=== PATIENT | male | born 1990 | race Two or more races ===

== ENCOUNTER 2022-04-03 01:45 | Emergency (ER) | payer MEDICAID ==
[~2022-04-03] VITALS: Ht 167.6 cm; Wt 171.4 kg
[2022-04-03 02:13] LABS: Basophils # (auto) 0.1 10 ^3/uL (0-0.2); Monocytes # (auto) 0.6 10 ^3/uL (0-1.3); Red Blood Cells 6.27 10^6/uL (4.5-5.90); White Blood Cell 10.1 10^3/uL (4.4-10.8)
[2022-04-03 02:15] LABS: Basophils % (auto) 0.8 % (0.0-2.0); Eosinophils # (auto) 0.3 10 ^3/uL (0-0.8); Eosinophils % (auto) 2.7 % (0.0-7.0); Hematocrit 49.9 % (41.0-53.0); Hemoglobin 16.4 g/dL (13.5-17.5); Lymphocytes # (auto) 3.9 10 ^3/uL (0.4-5.4); Lymphocytes % (auto) 38.3 % (10.0-50.0); Mean Corpuscular Hemoglobin 26.1 pg (28.0-32.0); Mean Corpuscular Hgb Conc. 32.8 g/dL (32.0-36.0); Mean Corpuscular Volume 79.5 fL (80.0-100.0); Monocytes % (auto) 5.9 % (0.0-12.0); Neutrophils # (auto) 5.3 10 ^3/uL (1.6-8.6); Neutrophils % (auto) 52.3 % (37.0-80.0); Nucleated Red Blood Cells % 0.2 %; Red Cell Distribution Width 14.1 % (11.8-14.3)
[2022-04-03 02:32] LABS: Albumin 3.9 g/dL (3.4-5.0); BUN/Creatinine Ratio 10.9; Calcium 8.8 mg/dL (8.5-10.1); Magnesium 2.2 mg/dL (1.6-2.6); Potassium 4.2 mmol/L (3.5-5.1)
[2022-04-03] MEDS ORDERED: HYDR50CA PO (02:34)
[2022-04-03 02:35] LABS: Bilirubin, Total 0.4 mg/dL (0.2-1.0); Total Protein 7.5 g/dL (6.4-8.2)
[2022-04-03] MEDS ORDERED: LORazepam 0.5 MG TAB PO ONE (02:45)
[2022-04-03 04:38] VITALS: BP 112/52
== END 2022-04-03 04:45 | disposition home or self-care (01) ==
LOC: ER 01:45
DX: F41.0 Panic disorder [episodic paroxysmal anxiety] (principal)
CPT/HCPCS: 36415; 71045; 80053; 83735; 83880; 84484; 85025; 93005

== ENCOUNTER 2022-05-22 22:05 | Emergency (ER) | payer MEDICAID ==
[~2022-05-22] VITALS: Ht 167.6 cm; Wt 168.7 kg
[~2022-05-22 22:05] MED LIST: HYDR50CA PO
[2022-05-23 00:07] VITALS: BP 125/72
== END 2022-05-23 01:16 | disposition home or self-care (01) ==
LOC: ER 22:05
DX: F41.9 Anxiety disorder, unspecified (principal)
CPT/HCPCS: 93005

== ENCOUNTER 2022-07-13 09:28 | Emergency (ER) | payer MEDICAID ==
[~2022-07-13] VITALS: Ht 167.6 cm; Wt 164.6 kg
[2022-07-13 09:35] VITALS: BP 143/92
[2022-07-13] MEDS ORDERED: ASPirin 325 MG TAB PO ONE (09:45)
[2022-07-13 10:08] LABS: Eosinophils # (auto) 0.2 10 ^3/uL (0-0.8); Lymphocytes # (auto) 2.7 10 ^3/uL (0.4-5.4); Neutrophils # (auto) 3.6 10 ^3/uL (1.6-8.6)
[2022-07-13 10:10] LABS: Basophils # (auto) 0 10 ^3/uL (0-0.2); Basophils % (auto) 0.6 % (0.0-2.0); Eosinophils % (auto) 3.5 % (0.0-7.0); Hemoglobin 16.7 g/dL (13.5-17.5); Lymphocytes % (auto) 37.4 % (10.0-50.0); Mean Corpuscular Hemoglobin 26.3 pg (28.0-32.0); Mean Corpuscular Hgb Conc. 34.1 g/dL (32.0-36.0); Mean Corpuscular Volume 77.3 fL (80.0-100.0); Monocytes # (auto) 0.5 10 ^3/uL (0-1.3); Monocytes % (auto) 7.6 % (0.0-12.0); Neutrophils % (auto) 50.9 % (37.0-80.0); Nucleated Red Blood Cells % 2.1 %; Red Blood Cells 6.34 10^6/uL (4.5-5.90); White Blood Cell 7.2 10^3/uL (4.4-10.8)
[2022-07-13 10:20] LABS: Albumin 3.8 g/dL (3.4-5.0); Calcium 8.8 mg/dL (8.5-10.1); Magnesium 2.3 mg/dL (1.6-2.6); Potassium 4.2 mmol/L (3.5-5.1)
[2022-07-13 10:23] LABS: Bilirubin, Total 0.5 mg/dL (0.2-1.0); Total Protein 7.1 g/dL (6.4-8.2)
[2022-07-13 10:30] LABS: INR 0.99 (0.9-1.15); Partial Thromboplastin Time 21.8 sec (24.6-33.4)
[2022-07-13 12:47] LABS: Alcohol, Urine < 3.0 mg/dL (0-10); Amphetamine Screen, Urine NEGATIVE (NEGATIVE); Barbiturate Scree,Urine NEGATIVE (NEGATIVE); Benzodiazephine Screen, Urine NEGATIVE (NEGATIVE); Cannabinoid Screen, Urine NEGATIVE (NEGATIVE); Cocaine Screen, Urine NEGATIVE (NEGATIVE); Opiate Scree,Urine NEGATIVE (NEGATIVE); Phencyclidine Screen, Urine NEGATIVE (NEGATIVE)
[2022-07-13 12:48] LABS: Urine Bacteria NONE SEEN /hpf (None Seen); Urine Blood Negative /uL (Negative); Urine Mucus FEW (None Seen); Urine Specific Gravity 1.023 (1.001-1.035); Urine WBC 1 /hpf (0 - 3)
[2022-07-13] MEDS ORDERED: ACET-6 PO (13:31)
== END 2022-07-13 14:42 | disposition left against medical advice (07) ==
LOC: ER 09:28
DX: M94.0 Chondrocostal junction syndrome [Tietze] (principal); Z79.899 Other long term (current) drug therapy
CPT/HCPCS: 36415; 71045; 80053; 80307; 81001; 83690; 83735; 83880; 84484; 85025; 85379; 85610; 85730; 93005

== ENCOUNTER → 2022-07-30 | Emergency (ER) | payer MEDICAID ==
[~2022-07-30] MED LIST changes: +ACET-6 PO
== END | disposition left against medical advice (07) ==
LOC: ER 20:15
DX: R42 Dizziness and giddiness (principal); Z53.21 Procedure and treatment not carried out due to patient leaving prior to being seen by health care provider

== ENCOUNTER 2022-08-21 13:07 | Emergency (ER) | payer MEDICAID ==
[~2022-08-21] VITALS: Ht 167.6 cm; Wt 158.0 kg
[2022-08-21 13:28] LABS: Basophils # (auto) 0.1 10 ^3/uL (0-0.2); Eosinophils # (auto) 0.2 10 ^3/uL (0-0.8); Monocytes # (auto) 0.5 10 ^3/uL (0-1.3); White Blood Cell 7.4 10^3/uL (4.4-10.8)
[2022-08-21 13:29] LABS: Basophils % (auto) 0.7 % (0.0-2.0); Eosinophils % (auto) 2.9 % (0.0-7.0); Hematocrit 50.7 % (41.0-53.0); Hemoglobin 16.5 g/dL (13.5-17.5); Lymphocytes # (auto) 2.5 10 ^3/uL (0.4-5.4); Lymphocytes % (auto) 33.6 % (10.0-50.0); Mean Corpuscular Hemoglobin 26.2 pg (28.0-32.0); Mean Corpuscular Hgb Conc. 32.6 g/dL (32.0-36.0); Mean Corpuscular Volume 80.2 fL (80.0-100.0); Monocytes % (auto) 7.2 % (0.0-12.0); Neutrophils # (auto) 4.1 10 ^3/uL (1.6-8.6); Neutrophils % (auto) 55.6 % (37.0-80.0); Nucleated Red Blood Cells % 0.9 %; Red Blood Cells 6.32 10^6/uL (4.5-5.90)
[2022-08-21] MEDS ORDERED: ASPirin 81 mg TAB PO ONE (13:30)
[2022-08-21 14:00] LABS: INR 0.95 (0.9-1.15); Partial Thromboplastin Time 24.2 sec (24.6-33.4)
[2022-08-21 14:09] LABS: Albumin 4.2 g/dL (3.4-5.0); Magnesium 2.4 mg/dL (1.6-2.6); Potassium 4.2 mmol/L (3.5-5.1)
[2022-08-21 14:14] LABS: BUN/Creatinine Ratio 7.4 (10.0-20.0); Bilirubin, Total 0.3 mg/dL (0.2-1.0); Calcium 9.3 mg/dL (8.5-10.1); Total Protein 7.1 g/dL (6.4-8.2)
[2022-08-21] MEDS ORDERED: ACET-6 PO (15:56)
[2022-08-21 16:16] VITALS: BP 138/83
== END 2022-08-21 16:17 | disposition home or self-care (01) ==
LOC: ER 13:07
DX: R07.89 Other chest pain (principal); F41.9 Anxiety disorder, unspecified; E78.5 Hyperlipidemia, unspecified; Z88.8 Allergy status to other drugs, medicaments and biological substances
CPT/HCPCS: 36415; 71045; 80053; 83735; 83880; 84484; 85025; 85379; 85610; 85730; 93005

== ENCOUNTER 2022-09-09 08:47 | Emergency (ER) | payer MEDICAID ==
[~2022-09-09] VITALS: Ht 167.6 cm; Wt 158.9 kg
[2022-09-09 11:07] VITALS: BP 154/90
[2022-09-09] MEDS ORDERED: AUG875T PO (11:13)
[2022-09-09] MEDS ORDERED: IBUP600T28 PO (11:13)
[2022-09-09] MEDS ORDERED: ACET1CAP14 PO (11:13)
== END 2022-09-09 11:21 | disposition home or self-care (01) ==
LOC: ER 08:47
DX: K08.89 Other specified disorders of teeth and supporting structures (principal); E78.5 Hyperlipidemia, unspecified; Z79.1 Long term (current) use of non-steroidal anti-inflammatories (NSAID); Z79.2 Long term (current) use of antibiotics; Z79.899 Other long term (current) drug therapy; Z88.8 Allergy status to other drugs, medicaments and biological substances

== ENCOUNTER 2022-10-04 22:18 | Emergency (ER) | payer MEDICAID ==
[~2022-10-04] VITALS: Ht 167.6 cm; Wt 157.0 kg
[~2022-10-04 22:18] MED LIST changes: +ACET1CAP14 PO; +AUG875T PO; +IBUP1TAB5 PO
[2022-10-04 22:30] VITALS: BP 152/86
[2022-10-04 23:03] LABS: Urine Bacteria NONE SEEN /hpf (None Seen); Urine Blood Negative /uL (Negative); Urine Mucus FEW (None Seen); Urine Specific Gravity 1.021 (1.001-1.035); Urine WBC 1 /hpf (0 - 3)
== END 2022-10-05 01:09 | disposition home or self-care (01) ==
LOC: ER 22:20
DX: R20.0 Anesthesia of skin (principal); E78.5 Hyperlipidemia, unspecified
CPT/HCPCS: 70450; 81001

== ENCOUNTER 2023-09-11 08:37 | Emergency (ER) | payer MEDICAID ==
[~2023-09-11] VITALS: Ht 167.6 cm; Wt 161.3 kg
[2023-09-11 09:11] VITALS: TEMP 97.6
[2023-09-11] MEDS: ONDANSETRON ODT 4 MG TAB PO ONE (09:27)
[2023-09-11] MEDS: HYDROmorphone HCL 2 MG/ML VL/or syr IM ONE (09:30)
[2023-09-11 10:05] VITALS: BP 126/70; PULSE 68; RESP 18; O2SAT 95
[2023-09-11] MEDS ORDERED: BACL10TA PO (10:31)
[2023-09-11] MEDS ORDERED: IBUP-1456 PO (10:31)
== END 2023-09-11 10:36 | disposition home or self-care (01) ==
LOC: EDUNIT# 08:37 → ER 08:37 → EDBD 08:37 → ER 10:36
DX: S39.012A Strain of muscle, fascia and tendon of lower back, initial encounter (principal); F41.9 Anxiety disorder, unspecified; E78.5 Hyperlipidemia, unspecified; X50.0XXA Overexertion from strenuous movement or load, initial encounter; Y93.89 Activity, other specified; Y92.89 Other specified places as the place of occurrence of the external cause; Y99.8 Other external cause status
CPT/HCPCS: 72100; 96372; 99283; J1170; Q0162

== ENCOUNTER 2024-07-23 11:18 | Emergency (ER) | payer MEDICAID ==
[~2024-07-23] VITALS: Ht 167.6 cm; Wt 157.0 kg
[~2024-07-23 11:18] MED LIST changes: +BACL10TA PO; +IBUP-1456 PO
--- NOTE | 2024-07-23 11:38 | ECG ---
[facility] Test Date: 2024-07-23 Test Time: 11:34:37 Pat Name: SARAH MTZ Department: ER Room: Gender: M Bilingual Teacher Aide: ROBERTO : 1990 Requested By: TERRY PORTILLO Order Number: [id number] Reading MD: Robbin Hinkle Measurements Intervals [place] Rate: 61 P: 14 [place]: 176 QRS: 34 QRSD: 93 T: -1 QT: 403 QTc: 406 Interpretive Statements Sinus rhythm Low voltage, precordial leads Electronically Signed On 07-23-2024 18:52:11 PDT by Robbin Hinkle Please click the below link to view image of tracing.
[2024-07-23] MEDS: ASPirin 81 mg TAB PO ONE (11:45)
--- NOTE | 2024-07-23 11:48 | ED.PDOC ---
HPI Comments 34y M who presents to the ED for chief complaint of chest pain. Pt states the pain started having chest pain which started 45 minutes prior. Pt states the pain started when he took a deep breath and states he started to feel pain by the L side of chest radiating down the L torso area. Pt states the pain is intermittent, with noted associated symptom of feeling "cold" but otherwise denies nausea, vomiting, diarrhea, fever, cough, diaphoresis, palpitations, headache or dizziness. Pt denies any past medical history and denies having taken anything to relieve his symptoms today prior to coming to the ED. Pt otherwise denies any other symptoms at this time. Chief Complaint: Chest Pain Time Seen by MD: 11:42 Primary Care Provider: MARGOT Kerr Notes: Nurses Notes, Medications, Allergies Allergies: Coded Allergies: Sertraline (Verified Allergy, Unknown, 07/23/24) Uncoded Allergies: SETRALINE (Allergy, Intermediate, RASH, 05/22/22) Home Meds Active Scripts Baclofen (Baclofen) 10 Mg Tab, 10 MG PO BID, #20 TAB Prov:COURTNEY CERVANTES PA 09/11/23 Ibuprofen (Ibuprofen) 800 Mg Tab, 1 TAB PO TID, #30 TAB Prov:COURTNEY CERVANTES PA 09/11/23 Ibuprofen Micronized (Ibuprofen) 600 Mg Tab, 600 MG PO Q8HPRN PRN, #30 TAB 0 Refills Prov:MARY KAY GRIFFITH LICENSING SERVICES CLERK 09/09/22 Acetaminophen (Tylenol) 325 Mg Cap, 325 MG PO Q4HPRN PRN, #30 CAP 0 Refills Take 1-2 caps po q4h prn for pain (Do not exceed 3,000mg of acetaminophen in 24 hours) Prov:MARY KAY GRIFFITH LICENSING SERVICES CLERK 09/09/22 Amoxicillin & Pot Clavulanate (AUGMENTIN TABLET) 875 Mg Tb, 875 MG PO BID for 10 Days, #20 TAB 0 Refills Prov:MARY KAY GRIFFITH LICENSING SERVICES CLERK 09/09/22 Acetaminophen (Acetaminophen Extra Stren) 500 Mg Tab, 500 MG PO Q6HPRN PRN for 10 Days, #40 TAB Prov:SERJIO LAINEZ DO 08/21/22 Acetaminophen (Acetaminophen Extra Stren) 500 Mg Tab, 500 MG PO QIDP for 10 Days, #40 TAB Prov:SERJIO LAINEZ DO 07/13/22 Hydroxyzine Pamoate (Vistaril) 50 Mg Cap, 1 CAP PO Q6HPRN, #16 CAP 0 Refills Prov:BAYLEE CHING 04/03/22 Information Source: Patient Mode of Arrival: Ambulatory Brought in by: self Severity: Moderate Timing: Hours Duration: Since onset Prehospital treatment: None Location: Chest (R), Chest (L) Radiation: Other (torso) Quality: Pressure Onset: At Rest Cardiac Risk Factors: None PE Risk Factors: None History of: None Modifying Factors: Breathing Associated Signs and Symptoms: None Past Medical History PAST MEDICAL HISTORY: Anxiety, High Lipids Surgical History: Denies all surgeries Family History Family History: Reviewed,noncontributory to illness Social History Smoker: Non-Smoker Alcohol: Occasionally Drugs: Denies Drug Use Lives In: Home Constitutional: reports: chills; denies: diaphoresis, fatigue, fever, malaise, sweats, weakness, others EENTM: denies: blurred vision, double vision, ear bleeding, ear discharge, ear drainage, ear pain, ear ringing, eye pain, eye redness, hearing loss, mouth pain, mouth swelling, nasal discharge, nose bleeding, nose congestion, nose pain, photophobia, tearing, throat pain, throat swelling, voice changes, others Respiratory: denies: cough, hemoptysis, orthopnea, SOB at rest, shortness of breath, SOB with excertion, stridor, wheezing, others Cardiovascular: reports: chest pain; denies: dizzy spells, diaphoresis, Dyspnea on exertion, edema, irregular heart beat, left arm pain, lightheadedness, palpitations, PND, syncope, others Gastrointestinal: denies: abdomen distended, abdominal pain, blood streaked bowels, constipated, diarrhea, dysphagia, difficulty swallowing, hematemesis, melena, nausea, poor appetite, poor fluid intake, rectal bleeding, rectal pain, vomiting, others Genitourinary: denies: burning, dysuria, flank pain, frequency, hematuria, in continence, penile discharge, penile sore, pain, testicle pain, testicle swelling, urgency, others Neurological: denies: dizziness, fainting, headache, left sided numbness, left sided weakness, numbness, paresthesia, pre-existing deficit, right sided numbness, right sided weakness, seizure, speech problems, tingling, tremors, weakness, others Musculoskeletal: denies: back pain, gout, joint pain, joint swelling, muscle pain, muscle stiffness, neck pain, others Integumetry: denies: bruises, change in color, change in hair/nails, dryness, laceration, lesions, lumps, rash, wounds, others Allergic/Immunocompromised: denies: Difficulty Healing, Frequent Infections, Hives, Itching, others Hematologic/Lymphatic: denies: anemia, blood clots, easy bleeding, easy bruising, swollen glands, others Endocrine: denies: excessive hunger, excessive sweating, excessive thirst, excessive urination, flushing, intolerance to cold, intolerance to heat, unexplained weight gain, unexplained weight loss, others Psychiatric: denies: anxiety, bipolar disorder, depression, hopeless, panic disorder, schizophrenia, sleepless, suicidal, others All Other Systems: Reviewed and Negative Physical Exam General Appearance: No Apparent Distress HEENT: Normal ENT Inspection, Pharynx Normal, TMs Normal Neck: Full Range of Motion, Non-Tender, Normal, Normal Inspection Respiratory: Chest Non-Tender, Lungs Clear, No Accessory Muscle Use, No Respiratory Distress, Normal Breath Sounds Cardiovascular: No Edema, No JVD, No Murmur, No Gallop, Normal Peripheral Pulses, Regular Rate/Rhythm Breast Exam: Deferred Gastrointestinal: No Organomegaly, Non Tender, No Pulsatile Mass, Normal Bowel Sounds, Soft Genitalia: Deferred Pelvic: Deferred Rectal: Deferred Extremities: No calf tenderness, Normal capillary refill, Normal inspection, Normal range of motion, Non-tender, No pedal edema Musculoskeletal : Apperance: Normal Neurologic: Alert, retail loss prevention officer II-XII nml as Tested, No Motor Deficits, Normal Affect, Normal Mood, No Sensory Deficits Cerebellar Function: Normal Reflexes: Normal Skin: Dry, Normal Color, Warm Lymphatic: No Adenopathy EKG EKG : Pulse Rate (adult): 61 [place]: Normal Cardiac Rhythm: NSR Block: None Hypertrophy: None ST: Normal Was a procedure done? Was a procedure done?: No CP Differential Dx Differential Diagnosis: A-fib, A-Flutter, Angina, Anxiety / Panic Attack, Electrolyte Disorder, PVC's Differential Diagnosis: HTN Essential, HTN Accelerated X-Ray, Labs, Meds, VS Vital Signs Date Time Temp Pulse Resp B/P (MAP) Pulse Ox O2 Delivery O2 Flow Rate FiO2 07/23/24 12:38 67 16 96 Room Air 07/23/24 12:38 98.3 67 16 147/95 (112) 96 98.3 07/23/24 12:36 Room Air* 0 21 07/23/24 12:30 64 07/23/24 11:48 61 07/23/24 11:35 99.3 74 20 136/72 (93) 96 99.3 07/23/24 11:34 61 Lab Test 07/23/24 13:08 07/23/24 11:45 Range/Units Troponin I High Sensitivity < 3 L < 3 L </=54 ng/L White Blood Count 8.3 4.4-10.8 10^3/uL Red Blood Count 6.54 H 4.5-5.90 10^6/uL Hemoglobin 17.4 13.5-17.5 g/dL Hematocrit 53.7 H 41.0-53.0 % Mean Corpuscular Volume 82.1 80.0-100.0 fL Mean Corpuscular Hemoglobin 26.7 L 28.0-32.0 pg Mean Corpuscular Hemoglobin Concent 32.5 32.0-36.0 g/dL Red Cell Distribution Width 14.1 11.8-14.3 % Platelet Count 198 140-450 10^3/uL Mean Platelet Volume 8.1 6.9-10.8 fL Neutrophils (%) (Auto) 53.8 37.0-80.0 % Lymphocytes (%) (Auto) 36.5 10.0-50.0 % Monocytes (%) (Auto) 6.5 0.0-12.0 % Eosinophils (%) (Auto) 2.4 0.0-7.0 % Basophils (%) (Auto) 0.8 0.0-2.0 % Neutrophils # (Auto) 4.5 1.6-8.6 10 ^3/uL Lymphocytes # (Auto) 3.0 0.4-5.4 10 ^3/uL Monocytes # (Auto) 0.5 0-1.3 10 ^3/uL Eosinophils # (Auto) 0.2 0-0.8 10 ^3/uL Basophils # (Auto) 0.1 0-0.2 10 ^3/uL Nucleated Red Blood Cells 0.8 % Platelet Estimate Adequate Clumped Platelets Few Hypochromasia (manual) Slight Sodium Level 143 136-145 mmol/L Potassium Level 4.2 3.5-5.1 mmol/L Chloride Level 108 H 98-107 mmol/L Carbon Dioxide Level 26 20-31 mmol/L Anion Gap 9 5-15 Blood Urea Nitrogen 11 9-23 mg/dL Creatinine 0.88 0.700-1.30 mg/dL Glomerular Filtration Rate Calc 116 >90 mL/min BUN/Creatinine Ratio 12.5 10.0-20.0 Serum Glucose 109 H 74-106 mg/dL Calcium Level 9.8 8.7-10.4 mg/dL Current Medications Medications (Trade) Dose Ordered Sig/Cassandra Route Start Time Stop Time Status Last Admin Aspirin 162 mg ONCE ONCE PO 07/23/24 11:45 07/23/24 11:46 DC 07/23/24 11:45 CHEST RADIOGRAPH IMPRESSION: No evidence of acute disease. The patient's CBC is within normal limits The chemistry panel is within normal limits The patient's troponin level x2 is negative The patient was given aspirin 162 mg by mouth At this time, the patient states that he is feeling better Patient was being discharged with a diagnosis of musculoskeletal chest pain The patient will return to the emergency department's the condition worsens Images Reviewed?: Images reviewed and evaluated by me Time of 1ST Reevaluation: 12:15 Reevaluation 1ST: Unchanged Time of 2ND Reevaluation: 15:10 Reevaluation 2ND: Improved Patient Education/Counseling: Diagnosis, Treatment, Prognosis, Need For Follow Up Family Education/Counseling: No Family Present Additional Information -Reviewed patient's previous visit(s): - The following tests were ordered, and results were reviewed by me: tropx 3, ekg x3, chest x-ray, cbc, bmp, - Additional information was gathered from interviewing the following independent Historian: none - I reviewed and agreed with the following test results read by other provider: radiologist - I discussed treatments and results with medical personnel and: patient Comprehensive systems review obtained and negative except for what is stated in the HPI. Departure 1 Departure Time of Disposition: 15:10 Impression: Primary Impression: Musculoskeletal chest pain Disposition: HOME / SELF CARE / HOMELESS Condition: Fair Discharged With: Self Critical Care Note Critical Care Time?: No Stability Stability form required: No Heart Score Heart Score: Heart Score Response (Comments) Value History Slightly Suspicious 0 EKG Normal 0 Age <45 0 Risk Factors 1 or 2 risk factors 1 Troponin Normal limit 0 Total 1 I personally scribed for TERRY PORTILLO MD ([email or web address]) on 07/23/24 at 11:48. Electronically submitted by Pj Silva ([email or web address]). I personally scribed for TERRY PORTILLO MD ([email or web address]) on 07/23/24 at 12:22. Electronically submitted by Pj Silva ([email or web address]). TERRY PORTILLO MD Jul 23, 2024 11:48
[2024-07-23 12:06] LABS: Basophils # (auto) 0.1 10 ^3/uL (0-0.2); Basophils % (auto) 0.8 % (0.0-2.0); Eosinophils # (auto) 0.2 10 ^3/uL (0-0.8); Eosinophils % (auto) 2.4 % (0.0-7.0); Hematocrit 53.7 % (41.0-53.0); Hemoglobin 17.4 g/dL (13.5-17.5); Lymphocytes % (auto) 36.5 % (10.0-50.0); Mean Corpuscular Hemoglobin 26.7 pg (28.0-32.0); Mean Corpuscular Hgb Conc. 32.5 g/dL (32.0-36.0); Mean Corpuscular Volume 82.1 fL (80.0-100.0); Monocytes # (auto) 0.5 10 ^3/uL (0-1.3); Monocytes % (auto) 6.5 % (0.0-12.0); Neutrophils # (auto) 4.5 10 ^3/uL (1.6-8.6); Neutrophils % (auto) 53.8 % (37.0-80.0); Nucleated Red Blood Cells % 0.8 %; Platelet Count (auto) 198 10^3/uL (140-450); Red Blood Cells 6.54 10^6/uL (4.5-5.90); Red Cell Distribution Width 14.1 % (11.8-14.3); White Blood Cell 8.3 10^3/uL (4.4-10.8)
--- NOTE | 2024-07-23 12:13 | DVH ---
CHEST RADIOGRAPH Indication: pain Technique: Frontal and lateral view of the chest was obtained Comparison: None FINDINGS: Lines and Tubes: None Lungs: Clear Pleura: No effusion. No pneumothorax. Cardiomediastinal contours: Unremarkable Bones: Unremarkable IMPRESSION: No evidence of acute disease.
[2024-07-23 12:17] LABS: Potassium 4.2 mmol/L (3.5-5.1); Sodium 143 mmol/L (136-145)
[2024-07-23 12:18] LABS: Anion Gap 9 (5-15); Calcium 9.8 mg/dL (8.7-10.4); Carbon Dioxide 26 mmol/L (20-31)
[2024-07-23 12:19] LABS: Chloride 108 mmol/L (98-107)
[2024-07-23 12:23] LABS: BUN/Creatinine Ratio 12.5 (10.0-20.0); Blood Urea Nitrogen 11 mg/dL (9-23); Glucose 109 mg/dL (74-106)
[2024-07-23 12:37] LABS: Hypochromia Slight; Platelet Estimate Adequate
[2024-07-23 15:18] VITALS: BP 134/85; PULSE 62; RESP 16; TEMP 98.2; O2SAT 97
--- NOTE | 2024-07-23 19:15 | ECG ---
[facility] Test Date: 2024-07-23 Test Time: 12:30:33 Pat Name: SARAH MTZ Department: ED Room: Gender: M Director Of State: [place] : 1990 Requested By: TERRY PORTILLO Order Number: [id number] Reading MD: Robbin Hinkle Measurements Intervals [place] Rate: 64 P: 12 [place]: 172 QRS: 0 QRSD: 88 T: -3 QT: 388 QTc: 401 Interpretive Statements Sinus rhythm Low voltage, precordial leads Borderline T wave abnormalities Electronically Signed On 07-24-2024 18:18:32 PDT by Robbin Hinkle Please click the below link to view image of tracing.
== END 2024-07-23 15:21 | disposition home or self-care (01) ==
LOC: ER 11:20
DX: R07.89 Other chest pain (principal); E78.5 Hyperlipidemia, unspecified; F41.9 Anxiety disorder, unspecified; Z79.899 Other long term (current) drug therapy; Z88.8 Allergy status to other drugs, medicaments and biological substances
CPT/HCPCS: 36415; 71046; 80048; 84484; 85025; 93005

== ENCOUNTER 2024-11-10 08:57 | Emergency (ER) | payer MEDICAID ==
[~2024-11-10] VITALS: Ht 162.6 cm; Wt 151.8 kg
--- NOTE | 2024-11-10 09:35 | ECG ---
[facility] Test Date: 2024-11-10 Test Time: 09:26:18 Pat Name: SARAH MTZ Department: ER Room: Gender: M Information Scientist: : 1990 Requested By: NATALIE MENDOZA Order Number: [id number] Reading MD: Robbin Hinkle Measurements Intervals [place] Rate: 54 P: 2 [place]: 161 QRS: -4 QRSD: 96 T: 31 QT: 442 QTc: 419 Interpretive Statements Sinus rhythm Low voltage, precordial leads Electronically Signed On 11-10-2024 17:02:55 PDT by Robbin Hinkle Please click the below link to view image of tracing.
[2024-11-10 10:01] LABS: Hematocrit 51.1 % (41.0-53.0); Hemoglobin 17.1 g/dL (13.5-17.5); Mean Corpuscular Hemoglobin 26.8 pg (28.0-32.0); Mean Corpuscular Volume 80.0 fL (80.0-100.0); Nucleated Red Blood Cells % 0.2 %
--- NOTE | 2024-11-10 10:02 | ED.PDOC ---
Musculoskeletal HPI Comments A 34 year-old male presents to the ED with a chief complaint of left shoulder pain as of as of days ago. Patient states shoulder pain is a 6/10, intermittent, "sharp", radiating to left upper arm, and exacerbated with movement. Patient notes taking Tylenol this morning with some improvement. Patient otherwise denies further associated symptoms of chest pain, SOB, abdominal pain, headache, dizziness, N/V, or fever at this time. Chief Complaint: Upper Extremity Time Seen by MD: 09:43 Primary Care Provider: ZOE RAHMAN Reviewed Notes: Nurses Notes, Medications, Allergies Allergies: Coded Allergies: Sertraline (Verified Allergy, Unknown, 07/23/24) Uncoded Allergies: SETRALINE (Allergy, Intermediate, RASH, 05/22/22) Home Meds Active Scripts Baclofen (Baclofen) 10 Mg Tab, 10 MG PO BID, #20 TAB Prov:COURTNEY CERVANTES 09/11/23 Ibuprofen (Ibuprofen) 800 Mg Tab, 1 TAB PO TID, #30 TAB Prov:COURTNEY CERVANTES 09/11/23 Ibuprofen Micronized (Ibuprofen) 600 Mg Tab, 600 MG PO Q8HPRN PRN, #30 TAB 0 Refills Prov:MARY KAY GRIFFITH GROUP LEADER [employer] 09/09/22 Acetaminophen (Tylenol) 325 Mg Cap, 325 MG PO Q4HPRN PRN, #30 CAP 0 Refills Take 1-2 caps po q4h prn for pain (Do not exceed 3,000mg of acetaminophen in 24 hours) Prov:MARY KAY GRIFFITH GROUP LEADER [employer]ISHING 09/09/22 Amoxicillin & Pot Clavulanate (AUGMENTIN TABLET) 875 Mg Tb, 875 MG PO BID for 10 Days, #20 TAB 0 Refills Prov:MARY KAY GRIFFITH GROUP LEADER WAFER POLISHING 09/09/22 Acetaminophen (Acetaminophen Extra Stren) 500 Mg Tab, 500 MG PO Q6HPRN PRN for 10 Days, #40 TAB Prov:SERJIO LAINEZ DO 08/21/22 Acetaminophen (Acetaminophen Extra Stren) 500 Mg Tab, 500 MG PO QIDP for 10 Days, #40 TAB Prov:SERJIO LAINEZ DO 07/13/22 Hydroxyzine Pamoate (Vistaril) 50 Mg Cap, 1 CAP PO Q6HPRN, #16 CAP 0 Refills Prov:BAYLEE CHING 04/03/22 Information Source: Patient Mode of Arrival: Ambulatory Location: Left Extremity Location: Shoulder Timing: Days Prehospital treatment: None Severity: Moderate Pain: Moderate Circumstances: Spontaneous Associated signs and symptoms: Shoulder pain, Other (Left Shou.se ) Past Medical History PAST MEDICAL HISTORY: Anxiety, High Lipids Surgical History: Denies all surgeries Family History Family History: Reviewed,noncontributory to illness Social History Smoker: Non-Smoker Alcohol: Occasionally Drugs: Denies Drug Use Lives In: Home Constitutional: denies: chills, diaphoresis, fatigue, fever, malaise, sweats, weakness, others EENTM: denies: blurred vision, double vision, ear bleeding, ear discharge, ear drainage, ear pain, ear ringing, eye pain, eye redness, hearing loss, mouth pain, mouth swelling, nasal discharge, nose bleeding, nose congestion, nose pain, photophobia, tearing, throat pain, throat swelling, voice changes, others Respiratory: denies: cough, hemoptysis, orthopnea, SOB at rest, shortness of breath, SOB with excertion, stridor, wheezing, others Cardiovascular: denies: chest pain, dizzy spells, diaphoresis, Dyspnea on exertion, edema, irregular heart beat, left arm pain, lightheadedness, palpitations, PND, syncope, others Gastrointestinal: denies: abdomen distended, abdominal pain, blood streaked bowels, constipated, diarrhea, dysphagia, difficulty swallowing, hematemesis, melena, nausea, poor appetite, poor fluid intake, rectal bleeding, rectal pain, vomiting, others Genitourinary: denies: burning, dysuria, flank pain, frequency, hematuria, incontinence, penile discharge, penile sore, pain, testicle pain, testicle swelling, urgency, others Neurological: denies: dizziness, fainting, headache, left sided numbness, left sided weakness, numbness, paresthesia, pre-existing deficit, right sided numbness, right sided weakness, seizure, speech problems, tingling, tremors, weakness, others Musculoskeletal: reports: others (PER HPI ); denies: back pain, gout, joint pain, joint swelling, muscle pain, muscle stiffness, neck pain Integumetry: denies: bruises, change in color, change in hair/nails, dryness, laceration, lesions, lumps, rash, wounds, others Allergic/Immunocompromised: denies: Difficulty Healing, Frequent Infections, Hives, Itching, others Hematologic/Lymphatic: denies: anemia, blood clots, easy bleeding, easy bruising, swollen glands, others Endocrine: denies: excessive hunger, excessive sweating, excessive thirst, excessive urination, flushing, intolerance to cold, intolerance to heat, unexplained weight gain, unexplained weight loss, others Psychiatric: denies: anxiety, bipolar disorder, depression, hopeless, panic disorder, schizophrenia, sleepless, suicidal, others All Other Systems: Reviewed and Negative Physical Exam General Appearance: No Apparent Distress, Normal HEENT: Normal ENT Inspection, Pharynx Normal, TMs Normal Neck: Full Range of Motion, Non-Tender, Normal, Normal Inspection Respiratory: Chest Non-Tender, Lungs Clear, No Accessory Muscle Use, No Respiratory Distress, Normal Breath Sounds Cardiovascular: No Edema, No JVD, No Murmur, No Gallop, Normal Peripheral Pulses, Regular Rate/Rhythm Breast Exam: Deferred Gastrointestinal: No Organomegaly, Non Tender, No Pulsatile Mass, Normal Bowel Sounds, Soft Genitalia: Deferred Pelvic: Deferred Rectal: Deferred Extremities: No calf tenderness, Normal capillary refill, Normal inspection, No rmal range of motion, Non-tender, No pedal edema Musculoskeletal : Apperance: Normal Neurologic: Alert, watch crystal edge grinder II-XII nml as Tested, No Motor Deficits, Normal Affect, Normal Mood, No Sensory Deficits Cerebellar Function: Normal Reflexes: Normal Skin: Dry, Normal Color, Warm Lymphatic: No Adenopathy Was a procedure done? Was a procedure done?: No EKG EKG : Pulse Rate (adult): 54 [place]: Normal Block: None Hypertrophy: None ST: Normal Differential Diagnosis EXT Differential Diagnosis: Cellulitis, Fracture, Sprain, Dislocation, Strain X-Ray, Labs, Meds, VS Vital Signs Date Time Temp Pulse Resp B/P (MAP) Pulse Ox O2 Delivery O2 Flow Rate FiO2 11/10/24 11:03 98.2 63 18 124/78 (93) 96 98.2 11/10/24 10:44 54 11/10/24 10:09 98.2 68 18 134/82 (99) 98 98.2 11/10/24 10:09 68 18 98 Room Air 11/10/24 09:26 54 11/10/24 09:17 98.3 68 18 153/84 (107) 98 98.3 Lab Test 11/10/24 09:46 Range/Units White Blood Count 6.1 4.4-10.8 10^3/uL Red Blood Count 6.40 H 4.5-5.90 10^6/uL Hemoglobin 17.1 13.5-17.5 g/dL Hematocrit 51.1 41.0-53.0 % Mean Corpuscular Volume 80.0 80.0-100.0 fL Mean Corpuscular Hemoglobin 26.8 L 28.0-32.0 pg Mean Corpuscular Hemoglobin Concent 33.5 32.0-36.0 g/dL Red Cell Distribution Width 14.8 H 11.8-14.3 % Platelet Count 246 140-450 10^3/uL Mean Platelet Volume 7.8 6.9-10.8 fL Neutrophils (%) (Auto) 42.1 37.0-80.0 % Lymphocytes (%) (Auto) 39.9 10.0-50.0 % Monocytes (%) (Auto) 8.5 0.0-12.0 % Eosinophils (%) (Auto) 8.7 H 0.0-7.0 % Basophils (%) (Auto) 0.8 0.0-2.0 % Neutrophils # (Auto) 2.5 1.6-8.6 10 ^3/uL Lymphocytes # (Auto) 2.4 0.4-5.4 10 ^3/uL Monocytes # (Auto) 0.5 0-1.3 10 ^3/uL Eosinophils # (Auto) 0.5 0-0.8 10 ^3/uL Basophils # (Auto) 0 0-0.2 10 ^3/uL Nucleated Red Blood Cells 0.2 % Sodium Level 143 136-145 mmol/L Potassium Level 4.1 3.5-5.1 mmol/L Chloride Level 105 98-107 mmol/L Carbon Dioxide Level 30 20-31 mmol/L Anion Gap 8 5-15 Blood Urea Nitrogen 7 L 9-23 mg/dL Creatinine 1.02 0.700-1.30 mg/dL Glomerular Filtration Rate Calc 100 >90 mL/min BUN/Creatinine Ratio 6.9 L 10.0-20.0 Serum Glucose 107 H 74-106 mg/dL Calcium Level 9.7 8.7-10.4 mg/dL Current Medications Medications (Trade) Dose Ordered Sig/Cassandra Route Start Time Stop Time Status Last Admin Ketorolac Tromethamine (Toradol Injection) 60 mg ONCE ONCE IM 11/10/24 09:45 11/10/24 09:46 DC 11/10/24 10:07 X-Ray, Labs, Meds, VS Comment A 34 year-old male presents to the ED with a chief complaint of left shoulder pain as of as of days ago. Patient arrives alert and oriented, ABC's intact, afebrile, vital signs stable, saturating well in room air CBC was ordered to exclude anemia, blood loss, or infection. BMP was ordered to exclude electrolyte abnormalities, renal failure, dehydration, hyperglycemia Patient was given: Toradol Injection 60MG/2ML. Tolerated medications with no adverse reaction. Disposition: Discharge. Strict return precautions discussed with the patient with full understanding. Supportive care advised (rest, ice, heat, NSAIDs, stretching exercises) Massage muscles with cold pack or ice for 20 minutes 4 times per day. Usually most useful if there is swelling during the first 48 hours Heating pad on the most painful area for 20 minutes to relieve muscle spasm Sleep and the most comfortable sleeping position (usually on the side with knees bent) Light stretching, no strenuous activity, avoid frequent bending, avoid carrying heavy objects Patient is stable for discharge at this time. External notes reviewed. Test results and diagnostic imaging interpreted. All diagnostic findings, discharge care, education and instructions provided Follow-up with PCP in 2 to 3 days Patient verbalized understanding and agreed to treatment plan Vital signs stable, afebrile, no acute distress noted Patient ambulatory with strong steady gait Advised to return precautions for any new or worsening symptoms, return to ER immediately for re-evaluation Patient is aware that the purpose of this visit was for an acute medical emergency requiring emergent stabilization. Chronic conditions, including malignancies have not been ruled out. Patient is instructed to follow up with PCP as directed and discharge instructions for continued care and workup. If unable to arrange follow-up, patient is to return to the emergency department for reassessment. Patient (parent or legal guardian if applicable) was given verbal and written discharge instructions and acknowledges understanding. Time of 1ST Reevaluation: 10:31 Reevaluation 1ST: Unchanged Patient Education/Counseling: Diagnosis, Treatment Family Education/Counseling: No Family Present Medical Screening: No EMC Exist At This Time Departure 1 Departure Time of Disposition: 11:55 Impression: Primary Impression: Arm pain Qualified Codes: M79.602 - Pain in left arm Disposition: HOME / SELF CARE / HOMELESS Condition: Stable e-Prescriptions Naproxen (Naproxen) 500 Mg Tab 500 MG PO BIDPC for 10 Days, #20 TAB 0 Refills Prov: NATALIE MENDOZA NP 11/10/24 Discharged With: Self Critical Care Note Critical Care Time?: No Stability Stability form required: No Heart Score Heart Score: Heart Score Response (Comments) Value History N/A 0 EKG N/A 0 Age N/A 0 Risk Factors N/A 0 Troponin N/A 0 Total 0 I personally scribed for NATALIE MENDOZA NP ([email or web address]) on 11/10/24 at 10:02. Electronically submitted by Christy Canada ([employer] I personally scribed for NATALIE MENDOZA NP ([email or web address]) on 11/10/24 at 10:11. Electronically submitted by Christy Canada ([employer] I personally scribed for NATALIE MENDOZA NP ([email or web address]) on 11/10/24 at 10:44. Electro nically submitted by Christy Canada ([employer] NATALIE MENDOZA NP Nov 10, 2024 10:02
[2024-11-10] MEDS: KETOROLAC TROMETH 60MG/2ML VIAL IM ONE (10:07)
[2024-11-10 10:12] LABS: Anion Gap 8 (5-15); Carbon Dioxide 30 mmol/L (20-31); Chloride 105 mmol/L (98-107); Potassium 4.1 mmol/L (3.5-5.1); Sodium 143 mmol/L (136-145)
[2024-11-10 10:13] LABS: Calcium 9.7 mg/dL (8.7-10.4)
[2024-11-10 10:18] LABS: BUN/Creatinine Ratio 6.9 (10.0-20.0); Blood Urea Nitrogen 7 mg/dL (9-23); Glucose 107 mg/dL (74-106)
[2024-11-10 11:03] VITALS: BP 124/78; PULSE 63; RESP 18; TEMP 98.2; O2SAT 96
[2024-11-10] MEDS ORDERED: NAPR-746 PO (11:56)
== END 2024-11-10 12:02 | disposition home or self-care (01) ==
LOC: ER 08:57
DX: M25.512 Pain in left shoulder (principal); F10.90 Alcohol use, unspecified, uncomplicated; F41.9 Anxiety disorder, unspecified; E78.5 Hyperlipidemia, unspecified; Z79.899 Other long term (current) drug therapy; Z79.1 Long term (current) use of non-steroidal anti-inflammatories (NSAID); Y90.9 Presence of alcohol in blood, level not specified
CPT/HCPCS: 36415; 80048; 85025; 93005; 96372; 99284; J1885

== ENCOUNTER 2024-12-17 22:21 | Emergency (ER) | payer MEDICAID ==
[~2024-12-17] VITALS: Ht 167.6 cm; Wt 149.8 kg
[~2024-12-17 22:21] MED LIST changes: +NAPR-746 PO
--- NOTE | 2024-12-18 00:16 | DVH ---
EXAMINATIONS: 3 views of the right ankle CLINICAL HISTORY: INJURY/PAIN COMPARISON: None Findings and impression: Generalized soft tissue about the ankle. Corticated ossific density inferior to the lateral malleolus may reflect sequelae of prior avulsion i njury. Acute on chronic injury not excluded. Please correlate with clinical exam. No other grossly displaced fractures or dislocations are evident on the provided views. The ankle mor tise appears relatively intact.
--- NOTE | 2024-12-18 00:22 | ED.PDOC ---
Back pain HPI HPI Comments PT CAME TO THE ER WITH CC OF RIGHT ANKLE PAIN, PT STATES THAT HE SLIPPED AND FELL ON FRIDAY THEN ON FRIDAY HE WAS NOT ABLE TO PUT ON HIS SHOE DUE TO SWELLING. RIGHT ANKLE HAS 2+ NON PITTING EDEMA. PT IS A&OX4 RR EVEN AND REGULAR NO DISTRESS NOTED AT THIS TIME. PT STATES HE IS UNABLE TO PUT PRESSURE ON IT. DENIES NUMBNESS OR WEAKNESS. Chief Complaint: Lower Extremity Time Seen by MD: 22:52 Primary Care Provider: ZOE Kerr Notes: Nurses Notes, Medications, Allergies Allergies: Coded Allergies: Sertraline (Verified Allergy, Unknown, 07/23/24) Uncoded Allergies: SETRALINE (Allergy, Intermediate, RASH, 05/22/22) Home Meds Active Scripts Ibuprofen (Ibuprofen) 800 Mg Tab, 800 MG PO Q8HP PRN for 6 Days, #18 TAB Prov:ERIC TRUJILLO WOOD MACHINIST APPRENTICE 12/18/24 Naproxen (Naproxen) 500 Mg Tab, 500 MG PO BIDPC for 10 Days, #20 TAB 0 Refills Prov:NATALIE MENDOZA FUR TRAPPER 11/10/24 Baclofen (Baclofen) 10 Mg Tab, 10 MG PO BID, #20 TAB Prov:COURTNEY CERVANTES 09/11/23 Ibuprofen (Ibuprofen) 800 Mg Tab, 1 TAB PO TID, #30 TAB Prov:COURTNEY CERVANTES 09/11/23 Ibuprofen Micronized (Ibuprofen) 600 Mg Tab, 600 MG PO Q8HPRN PRN, #30 TAB 0 Refills Prov:MARY KAY GRIFFITH WOOD MACHINIST APPRENTICE 09/09/22 Acetaminophen (Tylenol) 325 Mg Cap, 325 MG PO Q4HPRN PRN, #30 CAP 0 Refills Take 1-2 caps po q4h prn for pain (Do not exceed 3,000mg of acetaminophen in 24 hours) Prov:MARY KAY GRIFFITH WOOD MACHINIST APPRENTICE 09/09/22 Amoxicillin & Pot Clavulanate (AUGMENTIN TABLET) 875 Mg Tb, 875 MG PO BID for 10 Days, #20 TAB 0 Refills Prov:MARY KAY GRIFFITH WOOD MACHINIST APPRENTICE 09/09/22 Acetaminophen (Acetaminophen Extra Stren) 500 Mg Tab, 500 MG PO Q6HPRN PRN for 10 Days, #40 TAB Prov:SERJIO LAINEZ DO 08/21/22 Acetaminophen (Acetaminophen Extra Stren) 500 Mg Tab, 500 MG PO QIDP for 10 Days, #40 TAB Prov:SERJIO LAINEZ DO 07/13/22 Hydroxyzine Pamoate (Vistaril) 50 Mg Cap, 1 CAP PO Q6HPRN, #16 CAP 0 Refills Prov:BAYLEE CHING 04/03/22 Mode of Arrival: Ambulatory Past Medical History PAST MEDICAL HISTORY: Anxiety, High Lipids Surgical History: Denies all surgeries Family History Family History: Reviewed,noncontributory to illness Social History Smoker: Non-Smoker Alcohol: Occasionally Drugs: Denies Drug Use Lives In: Home All Other Systems: Reviewed and Negative (SEE HPI) Physical Exam General Appearance: No Apparent Distress, Normal HEENT: Pharynx Normal Neck: Full Range of Motion, Normal Inspection Respiratory: Lungs Clear, No Respiratory Distress, Normal Breath Sounds Cardiovascular: No Murmur, Normal Peripheral Pulses, Regular Rate/Rhythm Breast Exam: Deferred Gastrointestinal: Non Tender, Soft Genitalia: Deferred Pelvic: Deferred Rectal: Deferred Extremities: No calf tenderness, Normal capillary refill, Pedal edema Musculoskeletal : Apperance: Normal Neurologic: Alert, No Motor Deficits, Normal Affect, Normal Mood, No Sensory Deficits Cerebellar Function: Normal Reflexes: Normal Skin: Dry, Normal Color, Warm Lymphatic: No Adenopathy Was a procedure done? Was a procedure done?: No Back Pain Differential Dx Differential Diagnosis: Fracture, Musculoskeletal Pain X-Ray, Labs, Meds, VS Vital Signs Date Time Temp Pulse Resp B/P (MAP) Pulse Ox O2 Delivery O2 Flow Rate FiO2 12/18/24 00:55 84 20 96 Room Air 12/18/24 00:55 98.0 84 20 136/62 (86) 96 98.0 12/17/24 22:23 98.4 90 18 140/77 92 98.4 Current Medications Medications (Trade) Dose Ordered Sig/Cassandra Route Start Time Stop Time Status Last Admin Ketorolac Tromethamine (Toradol Injection) 60 mg ONCE ONCE IM 12/18/24 00:30 12/18/24 00:31 DC 12/18/24 00:48 X-Ray, Labs, Meds, VS Comment Findings and impression: Generalized soft tissue about the ankle. Corticated ossific density inferior to the lateral malleolus may reflect sequelae of prior avulsion injury. Acute on chronic injury not excluded. Please correlate with clinical exam. No other grossly displaced fractures or dislocations are evident on the provided views. The ankle mortise appears relatively intact. ANKLE SPLINT APPLIED CRUTCHES GIVEN PAIN MEDICINE PROVIDED PATIENT REQUESTING DISCHARGE AT THIS TIME. ER RETURN PRECAUTIONS GIVEN PATIENT INDICATES UNDERSTANDING AGREES WITH DISCHARGE PLAN OF CARE ADVISED TO FOLLOW UP KEEP SPLINT Time of 1ST Reevaluation: 23:00 Reevaluation 1ST: Unchanged Time of 2ND Reevaluation: 00:25 Reevaluation 2ND: Improved Patient Education/Counseling: Diagnosis, Treatment, Prognosis, Need For Follow Up Family Education/Counseling: No Family Present SEPSIS Sepsis Screen Date sepsis recognized/suspect: Dec 17, 2024 Time Sepsis recognized/suspect: 2227 Recent Procedure: No On Antibiotic Therapy: No Respiratory Rate >20: No Heart Rate >90: No Temp<36 C (96.8 F) or >38.3 C: No SBP <90 or MAP <65 mmHG: No New Acute Mental Status Change: No Is the patient on CPAP, BIPAP,: No Physician Orders R Ankle 3 View (12/17/24 22:56) Vital Signs Date Time Temp Pulse Resp B/P (MAP) Pulse Ox O2 Delivery O2 Flow Rate FiO2 12/18/24 00:55 84 20 96 Room Air 12/18/24 00:55 98.0 84 20 136/62 (86) 96 98.0 12/17/24 22:23 98.4 90 18 140/77 92 98.4 Medications Medications Dose Ordered Sig/Cassandra Route Start Time Stop Time Status Last Admin Dose Admin Ketorolac Tromethamine 60 mg ONCE ONCE IM 12/18/24 00:30 12/18/24 00:31 DC 12/18/24 00:48 Departure 1 Departure Time of Disposition: 00:25 Impression: Primary Impression: Ankle fracture, lateral malleolus, closed Qualified Codes: S82.64XA - Nondisplaced fracture of lateral malleolus of right fibula, initial encounter for closed fracture Disposition: 01 HOME / SELF CARE / HOMELESS Condition: Stable e-Prescriptions Ibuprofen (Ibuprofen) 800 Mg Tab 800 MG PO Q8HP PRN for 6 Days, #18 TAB Prov: ERIC TRUJILLO 12/18/24 Discharged With: Self Critical Care Note Critical Care Time?: No Stability Stability form required: No ERIC TRUJILLO WOOD MACHINIST APPRENTICE Dec 18, 2024 00:22
[2024-12-18] MEDS ORDERED: IBUP-1456 PO (00:27)
[2024-12-18] MEDS: KETOROLAC TROMETH 60MG/2ML VIAL IM ONE (00:48)
[2024-12-18 00:55] VITALS: BP 136/62; PULSE 84; RESP 20; TEMP 98; O2SAT 96
== END 2024-12-18 00:58 | disposition home or self-care (01) ==
LOC: ER 22:21
DX: S82.61XA Displaced fracture of lateral malleolus of right fibula, initial encounter for closed fracture (principal); F10.90 Alcohol use, unspecified, uncomplicated; F41.9 Anxiety disorder, unspecified; E78.5 Hyperlipidemia, unspecified; Z79.899 Other long term (current) drug therapy; Z79.1 Long term (current) use of non-steroidal anti-inflammatories (NSAID); W01.0XXA Fall on same level from slipping, tripping and stumbling without subsequent striking against object, initial encounter; Y93.89 Activity, other specified; Y92.89 Other specified places as the place of occurrence of the external cause; Y99.8 Other external cause status; Y90.9 Presence of alcohol in blood, level not specified
CPT/HCPCS: 29515; 73610; 96372; 99283; J1885